=== PATIENT | female | born 1985 | race Two or more races ===

== ENCOUNTER 2022-05-21 20:46 | Emergency (ER) | payer OTHER ==
[~2022-05-21] VITALS: Ht 157.5 cm; Wt 59.0 kg
[2022-05-21] MEDS ORDERED: AMOX-CLAV 875-1 EAC1 PO ×2 (22:35→22:41)
== END 2022-05-22 | disposition home or self-care (01) ==
LOC: ER 20:46
DX: S01.25XA Open bite of nose, initial encounter (principal); W54.0XXA Bitten by dog, initial encounter; Y93.89 Activity, other specified; Y92.63 Factory as the place of occurrence of the external cause